=== PATIENT | male | born 1965 | race Two or more races ===

== ENCOUNTER 2020-09-06 18:39 | Inpatient (IN) | payer MEDICAID, OTHER ==
[~2020-09-06] VITALS: Ht 190.5 cm; Wt 140.0 kg
[2020-09-06 19:39] LABS: Basophils # (auto) 0 10 ^3/uL (0-0.2); Basophils % (auto) 0.8 % (0.0-2.0); Eosinophils # (auto) 0 10 ^3/uL (0-0.8); Eosinophils % (auto) 0.2 % (0.0-7.0); Hematocrit 48.5 % (41.0-53.0); Hemoglobin 16.7 g/dL (13.5-17.5); Lymphocytes % (auto) 19.6 % (10.0-50.0); Mean Corpuscular Hemoglobin 31.6 pg (28.0-32.0); Mean Corpuscular Hgb Conc. 34.5 g/dL (32.0-36.0); Mean Corpuscular Volume 91.6 fL (80.0-100.0); Monocytes # (auto) 0.5 10 ^3/uL (0-1.3); Monocytes % (auto) 9.2 % (0.0-12.0); Neutrophils # (auto) 3.7 10 ^3/uL (1.6-8.6); Neutrophils % (auto) 70.2 % (37.0-80.0); Nucleated Red Blood Cells % 0.1 %; Red Cell Distribution Width 14.7 % (11.8-14.3); White Blood Cell 5.3 10^3/uL (4.4-10.8)
[2020-09-06 19:53] LABS: Albumin 3.6 g/dL (3.4-5.0); Anion Gap 10 (5-15); Blood Urea Nitrogen 15 mg/dL (7-18); Calcium 8.3 mg/dL (8.5-10.1); Carbon Dioxide 22 mmol/L (21-32); Chloride 100 mmol/L (98-107); Glucose 100 mg/dL (74-106); Potassium 3.5 mmol/L (3.5-5.1); Sodium 132 mmol/L (136-145)
[2020-09-06 19:59] LABS: Alanine Aminotransferase 116 U/L (16-61); Alkaline Phosphatase 80 U/L (45-117); Aspartate Aminotransferase 86 U/L (15-37); BUN/Creatinine Ratio 12.5; Bilirubin, Total 0.5 mg/dL (0.2-1.0); GFR African American 81 mL/min; GFR Non-African American 67 mL/min; Total Protein 8.1 g/dL (6.4-8.2)
[2020-09-06] MEDS ORDERED: ZINC SULFATE 220mg CAP or TAB PO ONE (20:45)
[2020-09-06] MEDS ORDERED: REMDESIVIR PER PHARMACY 0 ML IV SCH (20:45)
[2020-09-06] MEDS ORDERED: AZITHROMYCIN 500MG/ 250ML 250 ML IV ONE (20:45)
[2020-09-06] MEDS ORDERED: ASCORBIC ACID 500 MG TAB PO ONE (20:45)
[2020-09-06] MEDS ORDERED: methylPREDNISolone SOD SUCC 125 MG/2 ML VL IV ONE (20:45)
[2020-09-06] MEDS ORDERED: CHOLECALCIFEROL (VITD3) 2,000 UNIT CAP/TAB PO ONE (20:45)
[2020-09-06] MEDS ORDERED: ONDANSETRON HCL 4 MG/2 ML VIAL IV PRN (21:15)
[2020-09-06] MEDS ORDERED: NITROGLYCERIN 0.4 MG SL TAB SL PRN (21:15)
[2020-09-06] MEDS ORDERED: ACETAMINOPHEN 500 MG TAB PO PRN (21:15)
[2020-09-06] MEDS ORDERED: MORPHINE SULF INJ 2 MG/ML SYRINGE 1ML IV PRN (21:15)
[2020-09-06] MEDS ORDERED: cefTRIAXone 1GM/50ML D5W 50 ML IV ONE (21:15)
[2020-09-06] MEDS ORDERED: TEMAZEPAM 15 MG CAP PO PRN (21:15)
[2020-09-06] MEDS ORDERED: ALBUTEROL SULF HFA 90MCG INH 200DOSE IN PRN (21:15)
[2020-09-06] MEDS: IPRATROPIUM BROMIDE HFA AER IN SCH (22:00)
[2020-09-06] MEDS: ENOXAPARIN SOD 40 MG/0.4 ML SYRINGE SC SCH (22:30)
[2020-09-06] MEDS ORDERED: REMDESIVIR 200 MG in NS 210ml LOADING DOSE ADULT IV ONE (22:45)
[2020-09-06 22:55] LABS: Urine Bacteria FEW /hpf (None Seen); Urine Blood 1+ /uL (Negative); Urine Mucus FEW (None Seen); Urine Specific Gravity 1.038 (1.001-1.035); Urine WBC 13 /hpf (0 - 3)
[2020-09-07 01:12] VITALS: BP 129/56
[2020-09-07] MEDS: IPRATROPIUM BROMIDE HFA AER IN SCH ×4 (06:00→22:00)
[2020-09-07 07:39] LABS: Basophils # (auto) 0 10 ^3/uL (0-0.2); Basophils % (auto) 0.5 % (0.0-2.0); Eosinophils # (auto) 0 10 ^3/uL (0-0.8); Hematocrit 46.6 % (41.0-53.0); Hemoglobin 16.5 g/dL (13.5-17.5); Lymphocytes # (auto) 0.8 10 ^3/uL (0.4-5.4); Lymphocytes % (auto) 25.1 % (10.0-50.0); Mean Corpuscular Hemoglobin 32.4 pg (28.0-32.0); Mean Corpuscular Hgb Conc. 35.4 g/dL (32.0-36.0); Mean Corpuscular Volume 91.6 fL (80.0-100.0); Monocytes # (auto) 0.1 10 ^3/uL (0-1.3); Monocytes % (auto) 3.4 % (0.0-12.0); Neutrophils # (auto) 2.2 10 ^3/uL (1.6-8.6); Nucleated Red Blood Cells % 0.1 %; Red Blood Cells 5.09 10^6/uL (4.5-5.90); Red Cell Distribution Width 14.9 % (11.8-14.3); White Blood Cell 3.1 10^3/uL (4.4-10.8)
[2020-09-07 08:01] LABS: Albumin 3.2 g/dL (3.4-5.0); BUN/Creatinine Ratio 13.2; Calcium 8.1 mg/dL (8.5-10.1); Potassium 4.1 mmol/L (3.5-5.1)
[2020-09-07 08:14] LABS: Bilirubin, Total 0.3 mg/dL (0.2-1.0); Total Protein 7.5 g/dL (6.4-8.2)
[2020-09-07] MEDS ORDERED: cefTRIAXone 1GM/50ML D5W 50 ML IV SCH (09:00)
[2020-09-07] MEDS ORDERED: ASCORBIC ACID 1,000 MG TAB PO SCH (10:00)
[2020-09-07] MEDS ORDERED: AZITHROMYCIN 500MG/ 250ML 250 ML IV SCH (10:00)
[2020-09-07] MEDS ORDERED: DexAMETHasone SOD PHOS 10MG/1ML VIAL INJ IV SCH (10:00)
[2020-09-07] MEDS ORDERED: ZINC SULFATE 220mg CAP or TAB PO SCH (10:00)
[2020-09-07] MEDS ORDERED: CHOLECALCIFEROL (VITD3) 2,000 UNIT CAP/TAB PO SCH (10:00)
[2020-09-07] MEDS: ENOXAPARIN SOD 40 MG/0.4 ML SYRINGE SC SCH ×2 (10:36→21:46)
[2020-09-07] MEDS ORDERED: FUROSEMIDE 20 MG/2 ML VIAL IV ONE (15:00)
[2020-09-07] MEDS ORDERED: REMDESIVIR 100mg 100 MG in SODIUM CHL 0.9% 230 ML IV SCH (15:00)
[2020-09-07 18:39] VITALS: BP 137/76
[2020-09-07 20:29] LABS: Thyroid Stimulating Hormone 0.94 uIU/mL (0.358-3.74)
[2020-09-07 23:08] VITALS: BP 118/77
[2020-09-08] MEDS ORDERED: FUROSEMIDE 20 MG/2 ML VIAL IV SCH (10:00)
== END 2020-09-07 23:30 | disposition short-term general hospital (02) | DRG 177 ==
LOC: ER 18:41 → TELE 21:12 → TELE-EAST 09-07 18:14
PROVIDERS: ADMIT Nurse Practitioner; ATTEND Internal Medicine
PROC: XW033E5 Introduction of Remdesivir Anti-infective into Peripheral Vein, Percutaneous Approach, New Technology Group 5 (ICD-10-PCS; principal; 2020-09-06)
DX: U07.1 COVID-19 (principal); J12.82 Pneumonia due to coronavirus disease 2019; J96.01 Acute respiratory failure with hypoxia; E66.9 Obesity, unspecified; F17.210 Nicotine dependence, cigarettes, uncomplicated; Z68.38 Body mass index [BMI] 38.0-38.9, adult
CPT/HCPCS: 36415; 71045; 80053; 81001; 82306; 82728; 83036; 83615; 83735; 84443; 84484; 85025; 85379; 85652; 86141; 87426; 93005; 94640; 96365; 96366; 96367; 96368; 96375; G0378; J0696; J1100; J2405